=== PATIENT | male | born 1970 | race Caucasian/White ===

== ENCOUNTER → 2020-04-27 02:32 | Outpatient (CLI) | payer OTHER, SELFPAY ==
[2020-04-27 18:21] LABS: SARS-CoV-2 RNA PCR Negative
== END ==
PROVIDERS: PCP Internal Medicine; Visit Provider Internal Medicine Gastroenterology
DX: Z01.812 Encounter for preprocedural laboratory examination (principal); Z20.822 Contact with and (suspected) exposure to COVID-19
CPT/HCPCS: C9803; U0003; U0005

== ENCOUNTER 2020-04-30 00:09 | Day surgery (SDC) | payer OTHER, SELFPAY ==
[2020-04-15 11:17] VITALS: BMI 36.3
[2020-04-30 06:15] VITALS: BP 158/95; PULSE 86; RESP 16; TEMP 36.7; O2SAT 100
[2020-04-30] MEDS: LACTATED RINGERS 1,000 ML 150 ML IV CONT (06:21)
--- NOTE | 2020-04-30 06:58 | PM.HPGS ---
History of Present Illness History of Present Illness Consent: Risks, benefits, and alternatives have been discussed and questions answered. Patient agrees to proceed with procedure. Chief complaint: Neoplasm Screening,Hx Of Colon Polyps,Fm Hx Colon Narrative: Dawood Chi is a 50 year old male Here for colon cancer screening. His father had carcinoma of the colon [facility] Family History Family History Father Carcinoma of colon Melanoma Other Skin cancer Melanoma Other Carcinoma of colon Skin cancer Social History Social History Smoking status: Never smoker Alcohol intake: current Drinks per week: 3 Alcohol use details: DRINKS Substance use: never Substance use type: does not use Living arrangements: with family Spiritual care concerns: No Meds Home Medications and Allergies Home Medications Medication Instructions Recorded Confirmed Type No Home Medications 04/30/20 04/30/20 History Allergies Allergy/AdvReac Type Severity Reaction Status Date / Time No Known Allergies Allergy Verified 04/30/20 06:10 Vital Signs Vital Signs - 24 hr 04/30/20 06:15 Temperature 36.7 C Pulse Rate 86 Respiratory Rate 16 Blood Pressure 158/95 H Pulse Oximetry 100 Exam Resp: Auscultation: clear to auscultation bilaterally Cardio: Rate: regular rate Rhythm: regular rhythm GI: GI Palp: Yes Soft to palpation and No Tenderness to palpation present (GI) Assessment and Plan Assessment and plan (1) Colon cancer screening: Code(s): Z12.11 - Encounter for screening for malignant neoplasm of colon Status: Acute Assessment and Plan: Colonoscopy with possible biopsy or polypectomy or cautery or injection of substances.
--- NOTE | 2020-04-30 07:12 | WPDANESEPPF ---
Anes - Initial Pre Proc Eval Procedure: Operation Date: 04/30/20 07:30 Proposed Procedures p Screening Colonoscopy - Davonte Fatima MD Date/Time: 04/30/20 07:12 Surgeon: Davonte Fatima MD Pre Op Diagnosis: Neoplasm Screening,Hx Of Colon Polyps,Fm Hx Colon Patient Data Age: 50 Gender: M Height: 5 ft 11 in Weight: 119.2 kg Last Vital Signs Temp 98.1 F 04/30/20 06:15 Pulse 86 04/30/20 06:15 Resp 16 04/30/20 06:15 BP 158/95 H 04/30/20 06:15 Pulse Ox 100 04/30/20 06:15 Allergies Allergy/AdvReac Type Severity Reaction Status Date / Time No Known Allergies Allergy Verified 04/30/20 06:10 Home Medications Medication Instructions Recorded Confirmed Type No Home Medications 04/30/20 04/30/20 History Patient hx anesthesia problems: none Family hx anesthesia problems: none PMFSH Past Medical History Medical History (Updated 04/30/20 @ 07:11 by Tony Kothari MD) Irregular heart beat checked per cardiology and no problems now; rate when sleeping drops low Family History Family History Father Carcinoma of colon Melanoma Other Skin cancer Melanoma Other Carcinoma of colon Skin cancer Social History Social History Smoking status: Never smoker Alcohol intake: current Drinks per week: 3 Alcohol use details: DRINKS Substance use: never Substance use type: does not use Living arrangements: with family Spiritual care concerns: No Anes - Eval Final PreProcedure Day of Procedure 04/30/20 07:12 Patient weight: overweight Heart: regular rate and rhythm Lungs: clear to auscultation Airway: Mallampati scale class II Neurological: alert and oriented Last oral intake: >/= 8 hours ASA classification: II Emergent: no Anesthetic plan: proceed Anesthesia type and monitoring: general GIVS and standard monitoring Informed Consent: The patient's anesthetic plan and its attendant risks and benefits were discussed with the patient/family/POA. Questions were solicited and answers provided to the satisfaction of the patient/family/POA.
[2020-04-30 07:46] VITALS: BP 129/60; PULSE 68; RESP 18; O2SAT 97
[2020-04-30 07:53] VITALS: BP 140/72; PULSE 60; RESP 17; O2SAT 97
== END 2020-04-30 08:16 | disposition home or self-care (01) ==
PROVIDERS: PCP Internal Medicine; Visit Provider Internal Medicine Gastroenterology
PROC: 0DJD8ZZ Inspection of Lower Intestinal Tract, Via Natural or Artificial Opening Endoscopic (ICD-10-PCS; CPT 45378; principal; 2020-04-30 07:30)
DX: Z12.11 Encounter for screening for malignant neoplasm of colon (principal)
CPT/HCPCS: 45378; J2001; J2704; J7120